=== PATIENT | female | born 1980 | race Caucasian/White ===

== ENCOUNTER → 2023-09-21 12:36 | Outpatient (CLI) | payer OTHER, MEDICAID, SELFPAY ==
[2023-09-21 13:47] LABS: HCG Quantitative /Beta subunit 333.58 mIU/mL
== END ==
PROVIDERS: Referring Provider Nurse Practitioner Obstetrics & Gynecology; Visit Provider Nurse Practitioner Obstetrics & Gynecology
DX: N91.2 Amenorrhea, unspecified (principal)
CPT/HCPCS: 36415; 84702

== ENCOUNTER → 2023-09-24 12:32 | Outpatient (CLI) | payer OTHER, MEDICAID, SELFPAY ==
[2023-09-24 13:30] LABS: HCG Quantitative /Beta subunit 258.47 mIU/mL
== END ==
PROVIDERS: Referring Provider Nurse Practitioner Obstetrics & Gynecology; Visit Provider Nurse Practitioner Obstetrics & Gynecology
DX: O26.851 Spotting complicating pregnancy, first trimester (principal); N91.2 Amenorrhea, unspecified
CPT/HCPCS: 36415; 84702

== ENCOUNTER 2023-10-24 16:56 | Observation (INO) | payer OTHER, MEDICAID, SELFPAY ==
[2023-10-24] VITALS (8 sets, daily range): BP systolic 110–118; BP diastolic 56–72; PULSE 78–92; RESP 18–19; TEMP 36.9; O2SAT 99–100; BMI 30.9
--- NOTE | 2023-10-24 | PATH_ITS ---
[facility] Accession Number: [id number] No. of containers..01 Tissue . 01 Material submitted: . fallopian tube - LEFT FALLOPIAN TUBE . 01 Diagnosis: LEFT FALLOPIAN TUBE, SALPINGECTOMY: Fimbriated fallopian tube with luminal hematoma and rare chorionic villi, consistent with ectopic . No evidence of neoplasm. MRV 10/28/2023 1333 Local . 01 Comment: As part of routine director software quality assurance, Drs. Renee and James have reviewed block A3 from this case and agree with the presence of rare chorionic villi. . 01 Electronically signed: . Ulises Mcaculey MD, PhD, Pathologist NPI- [id number] . 01 Gross description: . Received in formalin with two identifiers and left fallopian tube, is a fimbriated fallopian tube 7.2 cm in length and ranging from 0.4 to 1.1 cm in diameter. Hemorrhagic material is extending from the fimbriated end. The serosa is casey, smooth, and intact with cystic structures measuring up to 0.2 cm in greatest dimension filled with cloudy serous fluid. The lumen is dilated and filled with hemorrhagic material in the approximate distal one-third of the tube. The remaining lumen is stellate and unremarkable. Manager Utilization Review sections to include one-half of bisected fimbriae and cross-sections of dilated and unremarkable lumen are submitted in cassette A1. ([id number]) . The remaining specimen is submitted in cassettes A2-A6. ([id number]) /KATERYNA 10/27/2023 1523 Local . 01 Pathologist provided ICD-10: O00.102 . 01 CPT . 033696 Specimen Comment: A courtesy copy of this report has been sent to [facility] Performed at: [address] [address], [place], [place] [id number] MD Isaac Chester MD Phone: [phone]
[2023-10-24 17:29] LABS: Add Manual Diff / Slide Review NO; Basophils Absolute Auto 0 /uL (0-100); Basophils Percent Auto 0.8 % (0-2); Eosinophils Absolute Auto 100 /uL (0-450); Eosinophils Percent Auto 1.6 % (2-4); Hematocrit 30.8 % (36-46); Hemoglobin 10.5 g/dL (12.0-16.0); Lymphocytes Absolute Auto 900 /uL (1100-4500); Lymphocytes Percent Auto 15.1 % (25-40); Mean Corpuscular HGB Conc 34.1 % (30-36); Mean Corpuscular Hemoglobin 28.1 PG (26-34); Mean Corpuscular Volume 82.3 fL (80-100); Monocytes Absolute Auto 500 /uL (0-900); Monocytes Percent Auto 9.2 % (3-14); Neutrophils Absolute Auto 4200 /uL (1500-7000); Neutrophils Percent Auto 73.3 % (50-75); Platelet Count 323 X10^3/uL (150-400); Red Blood Cell Count 3.74 X10^6/uL (4.0-5.2); White Blood Cell Count 5.7 X10^3/uL (4.5-11.0)
--- NOTE | 2023-10-24 17:33 | DI.US.S_ITS ---
PROCEDURE: US PELVIC COMPLETE INDICATIONS: Miscarriage 1 month ago with lower abdominal pain and bleedi TECHNIQUE: Real-time scanning was performed of the pelvic organs, with image documentation. Additional endovaginal scanning was necessary due to incomplete visualization of the adnexal and endometrial structures by transabdominal scanning. COMPARISON: None. FINDINGS: Uterus: Uterus is anteverted and normal in size at 7.9 x 5.0 x 3.7 cm. The myometrium is homogeneous. The endometrium measures 10 mm combined thickness. No visualized retained products of conception. No increased vascularity. Ovaries: The right ovary measures 2.8 x 2.5 x 1.9 cm, with a calculated ovarian volume of 7 cc. The left ovary measures 7.0 x 3.8 x 4.6 cm, with a calculated ovarian volume of 64 cc. Left ovarian focus of decreased echogenicity is present measuring 2.7 x 2.3 x 2.2 cm. Vascular flow is identified within the ovaries bilaterally. Other: Moderate fluid is present within the adnexal regions bilaterally as well as the cul-de-sac. IMPRESSION: No visualized retained products of conception. Recommend correlation with beta HCG levels. Fluid is present within the lower pelvis of heterogeneous material. This could represent areas of hemorrhage. Left ovarian cysts. We strive to produce accurate, complete, and clear reports of imaging services. To assist us in improving patient care, this report was composed using standard report templates and voice recognition software. Therefore, it may contain abnormal punctuation, insertions and/or omissions. Occasional wrong-word or sound-alike substitutions may occur. Though we review the report and make efforts to correct it, we do recommend that the report be read carefully in proper context to recognize any text inaccuracies. Dictated by: Krystina Doran M.D. on 10/24/2023 at 19:00 Approved by: Krystina Doran M.D. on 10/24/2023 at 19:02
[2023-10-24 17:38] LABS: BUN Creatinine Ratio 39.1 (6-22); Blood Urea Nitrogen 25 mg/dL (7-17); Calcium 7.9 mg/dL (8.4-10.2); Carbon Dioxide 28 mmol/L (22-32); Chloride 106 mmol/L (98-107); Estimated Glomerular Filt Rate > 60 mL/min (>60); Glucose 99 mg/dL (70-100); HEMOLYSIS < 15 (0-50); Potassium 3.1 mmol/L (3.4-5.1); Sodium 138 mmol/L (137-145)
[2023-10-24] MEDS: HYDROCODONE/ACET 5/325 TABLET 1 TAB PO (17:41)
[2023-10-24 18:07] LABS: HCG Quantitative /Beta subunit 89.83 mIU/mL
--- NOTE | 2023-10-24 18:36 | ED.PREGNANCY ---
HPI - General Chief complaint: Urogenital-Female Stated complaint: cramping/post miscarriage/vaginal bleeding Time Seen by Provider: 10/24/23 17:50 Source: patient Mode of arrival: Ambulatory Limitations: no limitations History of Present Illness HPI Narrative: 43yo presents for severe lower abdominal cramping and vaginal bleeding. Patient states that 1 month ago she had a spontaneous miscarriage at approximately 6 weeks gestational age. She had an ultrasound through [facility] that did not show an intra-uterine , and received RhoGAM due to O negative blood type status. She had serial HCGs that continued to downtrend. Patient states that after the initial bleeding and cramping stopped she was in her usual state of health at home until last night. Last night patient began to have severe cramping and return of vaginal bleeding. Today she was at [facility] in [place] where an ultrasound was ordered, however she was unable to tolerate imaging due to severe pain with positioning. She states that she was brought back to the waiting room where her pain continued. She states that since her issues were not addressed she came to the emergency department in [place] for evaluation. Patient states that she has been using home hCG monitors to follow her hCG. She states that it frequently measures between the 100-300 range. Related Data Allergies Allergy/AdvReac Type Severity Reaction Status Date / Time No Known Drug Allergies Allergy Verified 10/24/23 17:06 Review of Systems Review of Systems Narrative: See HPI Exam Initial Vital Signs Initial Vital Signs: Vital Signs Temperature 98.4 F 10/24/23 16:59 Pulse Rate 86 10/24/23 16:59 Respiratory Rate 18 10/24/23 16:59 Blood Pressure 115/72 10/24/23 16:59 Pulse Oximetry 99 10/24/23 16:59 Oxygen Delivery Method Room Air 10/24/23 16:59 Const: Awake, alert, tearful, uncomfortable, in pain Cardiac: regular rate, regular rhythm RESP: unlabored, clear bilaterally, no wheezing GI: Soft, diffuse tenderness to palpation Skin: Warm, Dry, intact, no rashes Neuro: AO x3, CN II-XII grossly intact, moves all extremities Course Orders Ordered: ED Orders 10/24/23 17:15 Basic Metabolic Panel Stat Complete Blood Count AUTO DIFF Stat HCG Quantitative /Beta subunit Stat Type and Screen Stat 10/24/23 17:33 US pelvic complete Stat 10/24/23 20:00 Urine Microscopic Stat Lactated Ringer's (Lactated Ringers) 1,000 mls @ 21 mls/hr IV CONT LUCAS Last Admin: 10/24/23 20:32 Dose: 21 mls/hr Documented By: MAXIMO Discontinued Medications Acetaminophen (Acetaminophen 325 Mg Tablet) 975 mg PO NOW ONE Stop: 10/24/23 19:29 Last Admin: 10/24/23 19:53 Dose: 975 mg Documented By: MAXIMO Hydrocodone Bitart/Acetaminophen (Hydrocodone/Acet 5/325 Tablet) 1 tab PO NOW ONE Stop: 10/24/23 17:34 Last Admin: 10/24/23 17:41 Dose: 1 tab Documented By: AGUSTÍN Ketorolac Tromethamine (Ketorolac 30 Mg/Ml Vial) 15 mg IV NOW ONE Stop: 10/24/23 18:36 Last Admin: 10/24/23 18:47 Dose: 15 mg Documented By: AGUSTÍN Midazolam HCl (Midazolam 2 Mg/2 Ml Vial) 2 mg IV NOW ONE Stop: 10/24/23 18:36 Last Admin: 10/24/23 18:50 Dose: 2 mg Documented By: AGUSTÍN Vital Signs Vital signs: Vital Signs - 8 hr 10/24/23 16:59 10/24/23 18:56 10/24/23 18:58 Temperature 98.4 F Pulse Rate 86 86 Respiratory Rate 18 Blood Pressure 115/72 113/62 Pulse Oximetry 99 100 Oxygen Delivery Method Room Air 10/24/23 18:58 10/24/23 19:00 10/24/23 19:00 Temperature Pulse Rate 85 87 Respiratory Rate Blood Pressure 112/61 Pulse Oximetry 100 100 Oxygen Delivery Method Room Air 10/24/23 19:30 10/24/23 19:30 10/24/23 20:00 Temperature Pulse Rate 79 92 H Respiratory Rate Blood Pressure 115/64 Pulse Oximetry 100 100 Oxygen Delivery Method Room Air Room Air 10/24/23 20:00 Temperature Pulse Rate Respiratory Rate Blood Pressure 118/56 L Pulse Oximetry Oxygen Delivery Method MDM - OB/Uterine Contractions Differential Diagnosis Differential diagnosis: Likely hemorrhage, -induced hypertension and eclampsia Lab Data 10/24/23 17:15 10/24/23 17:15 Labs: Lab Results 06/24/24 06/24/24 Range/Units 17:15 20:00 WBC 5.7 (4.5-11.0) X10^3/uL RBC 3.74 L (4.0-5.2) X10^6/uL Hgb 10.5 L (12.0-16.0) g/dL Hct 30.8 L (36-46) % MCV 82.3 (80-100) fL MCH 28.1 (26-34) PG MCHC 34.1 (30-36) % RDW 16.0 H (11.6-14.8) % Plt Count 323 (150-400) X10^3/uL Neut % (Auto) 73.3 (50-75) % Lymph % (Auto) 15.1 L (25-40) % [place] % (Auto) 9.2 (3-14) % Eos % (Auto) 1.6 L (2-4) % Baso % (Auto) 0.8 (0-2) % Neut # (Auto) 4200 (0540-2024) /uL Lymph # (Auto) 900 L (0726-7573) /uL [place] # (Auto) 500 (0-900) /uL Eos # (Auto) 100 (0-450) /uL Baso # (Auto) 0 (0-100) /uL Sodium 138 (137-145) mmol/L Potassium 3.1 L (3.4-5.1) mmol/L Chloride 106 (98-107) mmol/L Carbon Dioxide 28 (22-32) mmol/L BUN 25 H (7-17) mg/dL Creatinine 0.64 (0.52-1.04) mg/dL Estimated GFR > 60 (>60) mL/min BUN/Creatinine Ratio 39.1 H (6-22) Glucose 99 (70-100) mg/dL Calcium 7.9 L (8.4-10.2) mg/dL HCG, Quant 89.83 mIU/mL Urine RBC 5-10/hpf H (0-5/HPF) Urine WBC 0-1/hpf (0-5/HPF) Ur Squamous Epith Cells 1-5 /hpf (0-5/HPF) Urine Bacteria Occasional (0-1) (None) Urine Mucus 1+ H (Negative) Ur Culture Indicated? Cult not indicated Vol Urine Centrifuged 10ml (spun) Blood Type O Negative Antibody Screen Positive Antibody Identification Anti-D Point of Care Testing Test Results Negative Urine Dip Bedside Urine Glucose Negative Bedside Urine Bilirubin - Negative Bedside Urine Ketone - Negative Urine Specific [place] 1.020 Bedside Urine Occult Blood +++ Bedside Urine pH 6.0 Bedside Urine Protein +/- 15 Bedside Urine Urobilinogen - Negative Bedside Urine Nitrite - Negative Bedside Urine Leukocytes - Negative Esterase Imaging Data US - OB: Radiologist's Impression: PROCEDURE: US PELVIC COMPLETE INDICATIONS: Miscarriage 1 month ago with lower abdominal pain and bleedi TECHNIQUE: Real-time scanning was performed of the pelvic organs, with image documentation. Additional endovaginal scanning was necessary due to incomplete visualization of the adnexal and endometrial structures by transabdominal scanning. COMPARISON: None. FINDINGS: Uterus: Uterus is anteverted and normal in size at 7.9 x 5.0 x 3.7 cm. The myometrium is homogeneous. The endometrium measures 10 mm combined thickness. No visualized retained products of conception. No increased vascularity. Ovaries: The right ovary measures 2.8 x 2.5 x 1.9 cm, with a calculated ovarian volume of 7 cc. The left ovary measures 7.0 x 3.8 x 4.6 cm, with a calculated ovarian volume of 64 cc. Left ovarian focus of decreased echogenicity is present measuring 2.7 x 2.3 x 2.2 cm. Vascular flow is identified within the ovaries bilaterally. Other: Moderate fluid is present within the adnexal regions bilaterally as well as the cul-de-sac. IMPRESSION: No visualized retained products of conception. Recommend correlation with beta HCG levels. Fluid is present within the lower pelvis of heterogeneous material. This could represent areas of hemorrhage. Left ovarian cysts. We strive to produce accurate, complete, and clear reports of imaging services. To assist us in improving patient care, this report was composed using standard report templates and voice recognition software. Therefore, it may contain abnormal punctuation, insertions and/or omissions. Occasional wrong-word or sound-alike substitutions may occur. Though we review the report and make efforts to correct it, we do recommend that the report be read carefully in proper context to recognize any text inaccuracies. Dictated by: Krystina Doran M.D. on 10/24/2023 at 19:00 Approved by: Krystina Doran M.D. on 10/24/2023 at 19:02 [facility] Narrative Medical decision making narrative: Uncomfortable and in pain patient presenting for vaginal bleeding 1 month after spontaneous miscarriage. Reports continued positive hCG is at home. Abdomen is soft but diffusely tender. Pelvic exam deferred as ultrasound is going to be ordered any way. She reports O negative blood type and has already received RhoGAM. IV pain medications ordered. Labs significant for WBC count 5.7, hemoglobin 10.5, platelets 323, sodium 138, potassium 3.1, creatinine 0.64, hCG 89.83 despite being 1 month post miscarriage. Ultrasound of the pelvis shows complex fluid in the cul-de-sac as well as a very large left ovary. Call placed to Dr. Olivo of OBGYN for evaluation. Case discussed as well as all imaging findings, Dr. Olivo to come down to ED to evaluate patient. After evaluation OBGYN is concerned that this may be a smoldering ruptured ectopic and will take patient to OR expeditiously for washout and further treatment. Patient and has been in agreement with plan at this time. Critical Care Time Critical Care Time Critical Care Time: Yes Total Critical Care Time: 42 Attestation: Ruptured ectopic that required emergent operative management. Discharge Plan Departure Patient Disposition: Admitted to Surgery Clinical Impression: Ruptured ectopic Ectopic Qualifiers: Location of ectopic : unspecified location Intrauterine status: without intrauterine Qualified Code(s): O00.90 - Unspecified ectopic without intrauterine Admit Date/Time: 10/24/23 20:28 Admit Provider: Jade Olivo
[2023-10-24] MEDS: KETOROLAC 30 MG/ML VIAL 15 MG IV (18:47)
[2023-10-24] MEDS: MIDAZOLAM 2 MG/2 ML VIAL IV (18:50)
[2023-10-24] MEDS: ACETAMINOPHEN 325 MG TABLET 975 MG PO (19:53)
--- NOTE | 2023-10-24 20:05 | PC.NURSE ---
Dr. Olivo in room seeing patient right now.
[2023-10-24 20:14] LABS: Bacteria Urine Occasional (0-1); Culture Indicated Urine Cult Not Indicated; Mucus Urine 1+ (Negative); RBC Urine 5-10/HPF (0-5/HPF); Squamous Epithelial Cell Urine 1-5 /HPF (0-5/HPF); Urine Volume 10mL (spun); WBC Urine 0-1/HPF (0-5/HPF)
--- NOTE | 2023-10-24 20:24 | P.HPOB_ITS ---
History of Present Illness History of Present Illness Reason for admission: pelvic pain and ectopic Narrative: Juliana Tobias is a 43 year old female G1 with persistent positive UPT presents to ED with concerns for ectopic . Pt states this was a planned and strongly desired . First +UPT sometime in August and was seen at [facility] at which time no intrauterine was visualized via transabdominal approach. Pt was sent for serial bHCG with noted decrease (333 --> 258 on 09/20 and 09/22, respectively). Pt states that the same evening she was called with the lab results she experienced severe cramping and bleeding and presumed she had miscarried. She was seen for f/u with [facility] the following week at which time her UPT was still positive, however not unanticipated given temporal relation to bleeding. She received rhogam secondary to O neg blood type at that time. Pt states that since then she has not yet had a spontaneous menses and has been using home hCG tests that approximate gestational age based on urine hCG values. Per pt these testing strips have said that her hCG is between 100-300. Pt states that yesterday evening she started experiencing severe cramping on her R side and lower pelvis along with some vaginal spotting. She tried to manage this expectantly however pain persisted and this AM she called her primary provider for advice. Pt was subsequently sent for stat US at [facility] in [facility] [place], however pt was unable to tolerate positioning for imaging study stating that as soon as she laid down she experienced severe pain that radiated throughout her abdomen, into her shoulders and even down her legs. She states that the pain was so intense she had difficulty breathing, but despite her degree of distress she was not being actively managed in the ED and decided to leave and present to our facility. On arrival pt was noted to be hemodynamically stable with diffuse abdominal tenderness. On pelvic US there was no evidence of intrauterine , however noted dependent free fluid with enlarged multi-cystic LUAN suspicious for ectopic . WOUND NURSE was consulted for urgent evaluation. On my arrival to room pt resting in bed with at bedside. Affirms narrative history as above. States currently her pain is significantly less than it was but notes that she has received analgesia since presentation to our facility. Reports last solid PO en route to facility (small bites of crackers) as well as small sips of water for medication. Denies h/o prior abdominal surgey, notes prior D&C for removal of benign endometrial polyp. Denies personal h/o STI/PID, non-smoker. [facility] Social History Smoking Status: Never smoker Meds Home Medications and Allergies Allergies Allergy/AdvReac Type Severity Reaction Status Date / Time No Known Drug Allergies Allergy Verified 10/24/23 17:06 Review of Systems Constitutional Constitutional: Reports headache(s) Eyes Eyes: Reports as per HPI ENT Ears, Nose, Mouth, and Throat: Yes as per HPI and Yes headache(s) Cardiovascular Cardiovascular: Reports as per HPI Respiratory Respiratory: Reports as per HPI Gastrointestinal Gastrointestinal: Reports cramping Genitourinary Genitourinary: Reports other (vaginal spotting ) Musculoskeletal Musculoskeletal: Reports as per HPI Integumentary/Breasts Skin/Breast: Reports as per HPI Neurologic Neurologic: Reports as per HPI and Reports headache(s) Psychiatric Psychiatric: Reports as per HPI Endocrine Endocrine: Reports as per HPI Hematologic/Lymphatic Hematologic/Lymphatic: Reports as per HPI Allergic/Immunologic Allergic/Immunologic: Reports as per HPI Exam Vital Signs (past 8 hours): - 10/24/23 16:59 10/24/23 18:56 10/24/23 18:58 Temperature 98.4 F Pulse Rate 86 86 Respiratory Rate 18 Blood Pressure 115/72 113/62 Pulse Oximetry 99 100 Oxygen Delivery Method Room Air 10/24/23 18:58 10/24/23 19:00 10/24/23 19:00 Temperature Pulse Rate 85 87 Respiratory Rate Blood Pressure 112/61 Pulse Oximetry 100 100 Oxygen Delivery Method Room Air 10/24/23 19:30 10/24/23 19:30 10/24/23 20:00 Temperature Pulse Rate 79 92 H Respiratory Rate Blood Pressure 115/64 Pulse Oximetry 100 100 Oxygen Delivery Method Room Air Room Air 10/24/23 20:00 Temperature Pulse Rate Respiratory Rate Blood Pressure 118/56 L Pulse Oximetry Oxygen Delivery Method Oxygen Delivery Method Room Air Narrative Exam Narrative: supine in bed, at bedside Const General: cooperative, No acute distress and ill appearing Nutritional Appearance: overweight Orientation: alert, awake and oriented x3 Limitations: mental status not altered HENMT Head: normal to inspection Resp Effort & Inspection: normal respiratory effort and able to speak in complete sentences Cardio Rate: regular rate GI Inspection: normal to inspection and no scars Palpation: soft and guarding (+rebound ) Other: deferred per shared decision making with patient Skin General: no rashes or lesions noted Neuro General: patient alert, patient awake and patient oriented x3 Extrem General: normal to inspection Psych Appearance: grossly normal Mental Status: mental status grossly normal Speech and Movement: speech and movement normal Mood: congruent mood Affect: normal affect Judgment: judgment good Objective Labs 10/24/23 17:15 10/24/23 17:15 Labs: Laboratory Results - last 24 hr 10/24/23 10/24/23 17:15 20:00 WBC 5.7 RBC 3.74 L Hgb 10.5 L Hct 30.8 L MCV 82.3 MCH 28.1 MCHC 34.1 RDW 16.0 H Plt Count 323 Neut % (Auto) 73.3 Lymph % (Auto) 15.1 L [place] % (Auto) 9.2 Eos % (Auto) 1.6 L Baso % (Auto) 0.8 Neut # (Auto) 4200 Lymph # (Auto) 900 L [place] # (Auto) 500 Eos # (Auto) 100 Baso # (Auto) 0 Sodium 138 Potassium 3.1 L Chloride 106 Carbon Dioxide 28 BUN 25 H Creatinine 0.64 Estimated GFR > 60 BUN/Creatinine Ratio 39.1 H Glucose 99 Calcium 7.9 L HCG, Quant 89.83 Urine RBC 5-10/hpf H Urine WBC 0-1/hpf Ur Squamous Epith Cells 1-5 /hpf Urine Bacteria Occasional (0-1) Urine Mucus 1+ H Ur Culture Indicated? Cult not indicated Vol Urine Centrifuged 10ml (spun) Blood Type O Negative Antibody Screen Positive Antibody Identification Anti-D Assessment & Plan Assessment and plan (1) Ectopic : Qualifiers: Intrauterine status: without intrauterine Location of ectopic : unspecified location Qualified Code(s): O00.90 - Unspecified ectopic without intrauterine Status: Acute Assessment & Plan narrative: 43yo with persistent +UPT >30d now with abdominal pain and vaginal spotting concerning for ruptured ectopic Suspected ruptured ectopic persistent +hCG without alternative etiology, new onset severe abdominal pain and vaginal spotting with associated findings on imaging patient and counseled on recommendation to proceed to OR for diagnostic laparoscopy. We discussed that the suspected ruptured ectopic is an empiric diagnosis, however given her history and presentation I firmly believe that direct visualization of the pelvic is warranted. Patient and partner in agreement with plan of care. Patient is consented for exam under anesthesia, diagnostic laparoscopy, possible salpingectomy, possible oophorectomy, laterality to be determined pending intraoperative findings. Risks, benefits and alternatives to procedure were reviewed and patient desires to proceed. OR team notified, currently in-house for on-going emergent case and current case will be posted to follow. Pt remains hemodynamically stable at time of this documentation. Time Spent With Patient Time with patient: 50 to 69 minutes with 50% spent counseling/coordinating care
[2023-10-24] MEDS: LACTATED RINGERS 1,000 ML 21 ML IV (20:32)
--- NOTE | 2023-10-24 21:37 | PC.NURSE ---
Report given to Hector SALCIDO from surgery.
[2023-10-24] MEDS: CEFAZOLIN 2 GM/100 ML PREMIX 100 ML IV (22:32)
--- NOTE | 2023-10-24 23:02 | SUR.OPER ---
Lithotomy on padded OR bed, head on pillow, arms tucked at side with thumbs facing up. Legs secured in padded yellow fins stirrups.
[2023-10-24] MEDS: BUPIVACAINE 0.25% (PF) VIAL 30 ML INJ (23:10)
[2023-10-25 00:26] VITALS: BP 108/57; PULSE 79; RESP 14; TEMP 36.2; O2SAT 98
[2023-10-25] MEDS: OXYCODONE/APAP 5/325 PREPACK 1 BOTTLE MISC (00:30)
[2023-10-25 00:31] VITALS: BP 107/63; PULSE 74; RESP 14; O2SAT 98
[2023-10-25 00:36] VITALS: BP 112/61; PULSE 78; RESP 14; TEMP 36.1; O2SAT 97
--- NOTE | 2023-10-25 00:39 | PM.GYNOP.1 ---
Operative Date/Time/Diagnoses Date of procedure: 10/24/23 Time of procedure: 23:14 Pre-op diagnosis: ruptured ectopic Post-op diagnosis: same Procedure & Clinicians Procedure: Procedures Operation Date: 10/24/23 22:30 Actual Procedure Side Surgeon p Laparoscopic Oophorectomy Salpingoophorectomy Jade Olivo MD Indications: acute abdomen, imaging consistent with ruptured ectopic Surgeon: Jade Olivo Anesthesia Type: General Operative Notes Findings: Approximately 400cc hemoperitoneum on entry. Grossly enlarged/dilated L fallopian tube with rupture of ectopic ; rupture itself adherent to L pelvic sidewall and encased within omentum. Normal appearing R fallopian tube and ovary. normal appearing L ovary. Normal appearing uterus. Closure Type: primary Specimen(s): right tube Estimated blood loss (mL): 25 Blood products transfused: none Procedure in detail: The patient was taken to the operating room, placed on the operating table in the supine position and intubated with ETT.? The patient was then placed in the lithotomy position with her legs in Mal stirrups.? The patient was then prepped and draped in a sterile fashion.? Straight catheterization of 100cc clear urine was performed.? Time out was performed. A 5mm incision was made infraumbilically and abdominal entry was achieved under direct visualization using the 5mm VisaPort trocar.? Abdomen was insufflated to 15mmHg.? Two lateral 5-mm ports were placed in a similar manner under direct visualization.? The uterus was anteverted using a loaded ring forceps via the vagina and abdominal survey was noted with findings as noted above. The Powerseal was used to dissect right fallopian tubes away from the L pelvic side wall, followed by lysis of omental adhesions. With roman catholic of normal anatomy a grossly dilated and ruptured fallopian tube was visualized. Using the powerseal the fallopian tube was dissected from the mesosalpinx and then amputated at the level of the cornua.? The right ovary as well as the contralateral tube and ovary were visualized and noted to be grossly normal in appearance. The 5mm infraumbilical incision was extended to 1cm and the prior trocar was removed and replaced with 12mm port for purposes of introducing the endocatch bag. The 10mm Endocatch was introduced via the infraumbilical port and the dissected tube with adherent ectopic was placed inside the bag under direct visualization. The bag was closed and brought to the level of the anterior abdominal wall. Abdominal insufflation was released and the bag was grasped using rodo clamps and the specimen was removed within the bag and noted to be intact. Specimen passed off the field for permanent study. The 12mm trocar was then replaced and insufflation was restored. The patient was placed in reverse trendelenburg position and the upper diaphragmatic margins were copious irrigated to clear the adherent clot. The patient was then placed in the supine position and the abdomen was copiously suction irrigated. The patient was then further placed in trendelenburg and the pelvis was suction irrigated with evacuation of clot and remaining hemoperitoneum. All dissection beds were inspected and noted to be hemostatic. The lateral trocars were removed under direct visualization followed by removal of the infraumbilical trocar and gas was released. Attention was turned then to closure of the 12mm port site. The fascia was visualized and grasped using alana x2, reapproximated with single 0-vicryl on a UR6 needle. The skin of all incisions was closed with 3-0 monocryl in a subcuticular fashion followed by placement of dermabond. The ring forceps was removed from the vagina. All counts were correct x2. Patient was extubated and taken to PACU in stable condition. ? Complications: none Post-operative Condition: stable Disposition: PACU Plan for aftercare: anticipate dc to home
[2023-10-25 00:46] VITALS: BP 114/67; PULSE 88; RESP 18; TEMP 36.1; O2SAT 98
[2023-10-25] MEDS: OXYCODONE IR 5 MG TABLET PO (00:50)
== END 2023-10-25 01:08 | disposition home or self-care (01) ==
LOC: ED 17:50 → AC 20:29
PROVIDERS: Emergency Medicine; Admitting Provider Obstetrics & Gynecology; Emergency Provider Emergency Medicine; Referring Provider Emergency Medicine; Visit Provider Obstetrics & Gynecology
PROC: (CPT 58661; principal; 2023-10-24 22:30)
DX: K62.5 Hemorrhage of anus and rectum (principal); O00.102 Left tubal pregnancy without intrauterine pregnancy
CPT/HCPCS: 59151; 36415; 76830; 76856; 80048; 81003; 81015; 81025; 84702; 85025; 86850; 86870; 86900; 86901; 93975; 96361; 96374; 96375; 99284; 99291; G0378; J0690; J1100; J1885; J2250; J2405; J2704; J3010

== ENCOUNTER → 2024-02-15 15:10 | Outpatient (CLI) | payer OTHER, MEDICAID, SELFPAY ==
--- NOTE | 2024-02-15 15:11 | DI.MG.S_ITS ---
BILATERAL DIGITAL SCREENING MAMMOGRAM 3D/2D WITH CAD: 02/15/2024 CLINICAL: Routine screening. Family history of breast cancer. Comparison is made to exam dated: 08/31/2022 mammogram - [facility]. The breasts are heterogeneously dense, which may obscure small masses (category c / 51-75% glandular tissue). Current study was also evaluated with a Computer Aided Detection (CAD) system. No significant masses, calcifications, or other findings are seen in either breast. There has been no significant interval change. IMPRESSION: NEGATIVE There is no mammographic evidence of malignancy. A 1 year screening mammogram is recommended. Based on the Tyrer Cuzick model (a risk assessment model) the patient's lifetime risk is 18.8% and her 10 year risk is 2.9%. According to the ACR, ACS, and NCCN guidelines, an annual breast MRI exam along with mammogram is recommended if the patient's lifetime risk is 20% or greater. This exam was interpreted at Station ID: [id number]. NOTE: For mammograms, a report in lay terms will be sent to the patient. Approximately 15% of breast malignancies will not be visualized mammographically. In the management of a palpable breast mass, a negative mammogram must not discourage biopsy of a clinically suspicious lesion. Electronically Signed By: Samantha Porras M.D., Ph.D. ajmar/ari:02/22/2024 01:33:54 letter sent: Normal Exam ACR BI-RADS Category 1: Negative
== END ==
PROVIDERS: Referring Provider Obstetrics & Gynecology; Visit Provider Obstetrics & Gynecology
DX: Z12.31 Encounter for screening mammogram for malignant neoplasm of breast (principal); Z80.3 Family history of malignant neoplasm of breast; R92.333 Mammographic heterogeneous density, bilateral breasts
CPT/HCPCS: 77063; 77067